=== PATIENT | male | born 1960 | race Two or more races ===

== ENCOUNTER 2024-11-29 15:41 | Emergency (ER) | payer MEDICARE, SELFPAY ==
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
[2024-11-29 16:06] VITALS: BP 154/77; PULSE 72; RESP 16; TEMP 36.6; O2SAT 98; BMI 24.4
--- NOTE | 2024-11-29 16:10 | XR_ITS ---
Examination: Hand, right 3 views Technique: Hand AP, oblique, lateral 3 views Date and time of exam: 2024 1652 hours INDICATIONS: Injury to the hand today, hand pain. FINDINGS: Dislocation at the proximal interphalangeal joint fifth digit 1 mm chip fracture projects palmar to the distal aspect proximal phalanx fifth digit which may be old IMPRESSION: Dislocation at the proximal interphalangeal joint fifth digit
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
== END 2024-11-29 18:51 | disposition home or self-care (01) ==
PROVIDERS: Emergency Provider Emergency Medicine; PCP Physician Assistant
DX: S63.286A Dislocation of proximal interphalangeal joint of right little finger, initial encounter (principal); V00.141A Fall from scooter (nonmotorized), initial encounter
CPT/HCPCS: 73130; 99283

== ENCOUNTER → 2025-03-09 | Outpatient (CLI) | payer MEDICARE, MEDICAID, SELFPAY ==
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
== END | disposition home or self-care (01) ==
PROVIDERS: PCP Physician Assistant; Referring Provider Physician Assistant; Visit Provider Physician Assistant
DX: S09.93XA Unspecified injury of face, initial encounter (principal); W19.XXXA Unspecified fall, initial encounter
CPT/HCPCS: 70150